=== PATIENT | male | born 1985 | race Caucasian/White ===

== ENCOUNTER 2017-10-25 15:36 | Emergency (ER) | payer OTHER, SELFPAY ==
[~2017-10-25 15:36] MED LIST: Sodium Chloride Irrig Solution 250 ML BOT ONE
[2017-10-25] MEDS ORDERED: Adacel (T-DAP) 0.5 ML VIAL ONE (16:35)
--- NOTE | 2017-10-25 17:36 | RAD ---
THREE VIEWS OF THE LEFT WRIST: HISTORY: Left wrist trauma and pain. FINDINGS: Three views of the left wrist show no evidence of acute fracture or dislocation. No soft tissue swel ling is seen. No degenerative changes are present. IMPRESSION: Unremarkable exam. POS: [facility]
== END 2017-10-25 17:50 | disposition home or self-care (01) ==
LOC: MADERS 15:36
DX: S01.81XA Laceration without foreign body of other part of head, initial encounter (principal); S66.912A Strain of unspecified muscle, fascia and tendon at wrist and hand level, left hand, initial encounter; S80.211A Abrasion, right knee, initial encounter; V86.55XA Driver of 3- or 4- wheeled all-terrain vehicle (ATV) injured in nontraffic accident, initial encounter
CPT/HCPCS: 12011; 90471; 90715